=== PATIENT | female | born 1985 | race Caucasian/White ===

== ENCOUNTER → 2017-10-13 | Outpatient (CLI) | payer OTHER ==
--- NOTE | 2017-10-13 19:09 | Diagnostic Imaging Report ---
INDICATION: Bilateral diagnostic mammogram with 3-D tomosynthesis. The current study was also evaluated with a Computer Aided Detection (CAD) system. FINDINGS: This is the patient's baseline study. At this time, the patient does complain of a lump in the immediate infra-areolar region of the right breast. A marker was placed to the area of concern. There is no primary or secondary sign of malignancy evident in this area. However, the fibroglandular tissue in the right breast is heterogeneously dense and could mask a lesion. I would recommend that ultrasound be performed for further study. The fibroglandular tissue in the left breast is also heterogeneously dense. This too limits the sensitivity of this exam. There is no primary or secondary sign of malignancy noted. IMPRESSION: There is no evidence for malignancy. In particular, there is no abnormality to account for the patient's mass in the infra-areolar region of the right breast. Ultrasound would be recommended for further study. ACR BI-RADS Category 0: Incomplete. (Needs additional imaging evaluation). Result letter will be mailed to the patient. Note: At least 10% of breast cancer is not imaged by mammography. Dictated by: Dictated on workstation # [id number]
--- NOTE | 2017-10-13 19:25 | Diagnostic Imaging Report ---
INDICATION: Ultrasound of the right breast limited. FINDINGS: By history, the patient has a palpable mass in the retroareolar region of the right breast. The diagnostic mammogram performed earlier today failed to show any sign of malignancy. On this exam, there is no discrete solid or cystic mass evident. I suspect that the palpable abnormality is related to fibroglandular tissue alone. However, if clinical concern regarding an underlying abnormality persists, then biopsy should still be considered. IMPRESSION: There is no evidence of malignancy. Clinical followup is recommended. ACR BI-RADS Category 1: Negative. Dictated by: Dictated on workstation # [id number]
== END ==
LOC: RAD 08:36
PROVIDERS: ATTEND Family Medicine
DX: N63.13 Unspecified lump in the right breast, lower outer quadrant (principal)
CPT/HCPCS: 77066